=== PATIENT | female | born 1945 | race Caucasian/White ===

== ENCOUNTER 2022-04-21 09:04 | Observation (INO) ==
[2022-04-21 10:25] LABS: ABS Eosinophils 0.1 10^3/ul (0-0.6); ABS Lymphocytes 0.4 10^3/ul (1.0-4.8); Eosinophil % 0.6 %; Hematocrit 39 % (35-47); Hemoglobin 12.9 g/dL (12.0-16.0); Lymphocyte % 4.6 %; Mean Corpuscular HGB Conc 33 g/dL (31-36); Mean Corpuscular Hemoglobin 29 pg (27-31); Mean Corpuscular Volume 89 fL (80-97); Mean Platelet Volume 7.9 fL (7.4-10.4); Platelet Count 303 10^3/uL (150-450); Red Blood Count 4.41 10^6 /uL (3.70-4.87); Red Cell Distribution Width 15 % (10-15); White Blood Count 9.5 10^3/uL (3.5-10.8)
[2022-04-21 10:55] LABS: Albumin 3.8 g/dL (3.2-5.2); Albumin/Globulin Ratio 1.1 (1-3); Calcium 9.4 mg/dL (8.6-10.3); Globulin 3.6 g/dL (2-4); Potassium 4.8 mmol/L (3.5-5.0); Total Bilirubin 0.5 mg/dL (0.2-1.0); Total Protein 7.4 g/dL (6.4-8.9); eGFR CKD-EPI 56.4 (>60)
[2022-04-21] MEDS ORDERED: Lactated Ringers 1000 ml BAG 1,000 ML IV ONE (14:02)
[2022-04-21] MEDS ORDERED: Ondansetron 4 mg VIAL 2 MG/ML 2 ml VIAL IV ONE ×2 (14:02→19:20)
[2022-04-21] MEDS ORDERED: D10W 500 ml BAG 500 ML IV ONE (14:53)
[2022-04-21] MEDS ORDERED: Haloperidol 5 mg/ml SDV IV/IM 5 MG/ML AMP IV SLOW PU ONE (17:37)
[2022-04-21] MEDS ORDERED: Ondansetron 4 mg VIAL 2 MG/ML 2 ml VIAL IV PRN (19:31)
[2022-04-21] MEDS ORDERED: NS 0.9% 1000 ml BAG 1,000 ML IV SCH (19:45)
[2022-04-21] MEDS ORDERED: Enoxaparin 40 MG/0.4 ML SYR SUBCUT SCH (20:00)
[2022-04-21] MEDS ORDERED: NS 0.9% IVPB SCH ×2 (22:20→22:22)
[2022-04-21] MEDS ORDERED: ERYTHROMYCIN LACTOBIONATE IVPB SCH ×2 (22:20→22:22)
[2022-04-21] MEDS: NS 0.9% IVPB SCH (23:02)
[2022-04-21] MEDS: ERYTHROMYCIN LACTOBIONATE IVPB SCH (23:02)
[2022-04-22 06:51] LABS: Calcium 8.3 mg/dL (8.6-10.3); Potassium 3.7 mmol/L (3.5-5.0); eGFR CKD-EPI 67.1 (>60)
[2022-04-22 07:05] LABS: TSH Ultra Thyroid Stim Horm 1.39 mcIU/mL (0.34-5.60)
[2022-04-22] MEDS: ERYTHROMYCIN LACTOBIONATE IVPB SCH (08:09)
[2022-04-22] MEDS: NS 0.9% IVPB SCH (08:09)
[2022-04-22] MEDS ORDERED: PTO:Ketorolac 0.5% OPHTH (NF) 0.5 % 5 ML BTL BOTH EYES SCH (09:00)
[2022-04-22] MEDS ORDERED: Ofloxacin 0.3% (Eye Drop) 5 ml BTL BOTH EYES SCH (09:00)
[2022-04-22] MEDS ORDERED: Pantoprazole VIAL 40 MG VIAL IV SCH (09:00)
[2022-04-22 12:17] VITALS: BP 115/64
== END 2022-04-22 12:20 | disposition home or self-care (01) ==
LOC: EDHOLD 09:04 → ED 09:04 → EDHOLD 04-22 12:19
PROVIDERS: ADMIT Internal Medicine; ATTEND Internal Medicine